=== PATIENT | female | born 1995 | race Caucasian/White ===

== ENCOUNTER 2018-11-12 19:16 | Emergency (ER) | payer BC ==
[2018-11-12] MEDS ORDERED: SODIUM CHLORIDE 0.9% 1,000 ML IV STA (20:38)
[2018-11-12] MEDS ORDERED: KETOROLAC 30 MG/ML 1 ML VIAL IVP STA (20:38)
[2018-11-12] MEDS ORDERED: ONDANSETRON 4 MG/2 ML VIAL IVP STA (20:38)
[2018-11-12 21:04] LABS: Appearance,Urine Clear (Clear); Bilirubin,Urine Negative (Negative); Blood,Urine Negative (Negative); Color,Urine Yellow; Glucose,Urine (UA) Negative (Negative); Ketones,Urine Negative (Negative); Leukocyte Esterase,Urine Negative (Negative); Nitrite,Urine Negative (Negative); PH, Urine 6.5 (5.0-8.0); Protein,Urine Negative (Negative); Specific Gravity,Urine 1.026 (1.001-1.035); Urobilinogen,Urine <2.0 mg/dL (<2.0)
[2018-11-12 21:10] LABS: Basophils % (A) 0 %; Eosinophils # (A) 0.1 k/uL (0-0.7); Eosinophils % (A) 1 %; HCT 38.2 % (34.0-46.0); HGB 12.9 gm/dL (11.4-16.0); Lymphocytes # (A) 0.8 k/uL (1.0-4.8); Lymphocytes % (A) 12 %; MCH 30.3 pg (25.0-35.0); MCHC 33.7 g/dL (31.0-37.0); Monocytes # (A) 0.1 k/uL (0-1.0); Monocytes % (A) 2 %; Neutrophils # (A) 5.8 k/uL (1.3-7.7); Neutrophils % (A) 84 %; Platelet Count 198 k/uL (150-450); RBC 4.25 m/uL (3.80-5.40); RDW 13.1 % (11.5-15.5); WBC 6.9 k/uL (3.8-10.6)
[2018-11-12 21:18] LABS: ALT 18 U/L (9-52); AST 16 U/L (14-36); Albumin 4.1 g/dL (3.5-5.0); Alkaline Phosphatase 53 U/L (38-126); Anion Gap 6 mmol/L; Blood Urea Nitrogen 10 mg/dL (7-17); Calcium 9.2 mg/dL (8.4-10.2); Carbon Dioxide 22 mmol/L (22-30); Chloride 108 mmol/L (98-107); Glucose 91 mg/dL (74-99); Lipase 75 U/L (23-300); Sodium 136 mmol/L (137-145); Total Bilirubin 0.5 mg/dL (0.2-1.3); Total Protein 6.8 g/dL (6.3-8.2)
--- NOTE | 2018-11-12 21:39 | US ---
EXAMINATION TYPE: US transvaginal with Dopplers DATE OF EXAM: 11/12/2018 COMPARISON: NONE CLINICAL HISTORY: 23-year-old female Pain. TECHNIQUE: Transvaginal (TV). Color Doppler and spectral waveform analysis of the ovarian arteries and veins. Date of LMP: 10/17/18 FINDINGS: EXAM MEASUREMENTS: Uterus: 6.2 x 2.6 x 3.8 cm Endometrial Stripe: 0.3 cm Right Ovary: not visualized Left Ovary: 1.8 x 1.6 x 1.2 cm 1. Uterus: Anteverted wnl 2. Endometrium: wnl 3. Right Ovary: extensive peristalsing bowel gas in right adnexa, unable to visualize ovary 4. Left Ovary: wnl Spectral, color and waveform doppler imaging shows good arterial and venous flow within the left ov stevan; there is no evidence for ovarian torsion on left. 5. Bilateral Adnexa: extensive peristalsing bowel gas in right adnexa, prominent vessels on left 6. Posterior cul-de-sac: wnl IMPRESSION: 1. Right ovary cannot be visualized due to extensive peristalsing bowel in the right adnexa. 2. Normal appearance to the left ovary with follicular change. No evidence for ovarian torsion on the left.
--- NOTE | 2018-11-12 22:02 | CT ---
EXAMINATION TYPE: CT abdomen pelvis w con DATE OF EXAM: 11/12/2018 COMPARISON: NONE HISTORY: 23-year-old female with lower abdominal pain. TECHNIQUE: Contiguous axial scanning of the abdomen and pelvis following administration of 100 ml Iso jacobo 300 IV contrast. Delayed images through the kidneys and coronal/sagittal reconstructions perform ed. CT DLP: 589.7 mGycm Automated exposure control for dose reduction was used. FINDINGS: Heart normal size without pericardial effusion. Lung bases clear without pleural effusion. No focal liver lesion or biliary ductal dilatation. Portal venous system is patent. Gallbladder, adrenal glands, kidneys, spleen, pancreas appear within normal limits. No dilated small bowel, free fluid, or free air. The proximal and midportion of the normal-appearing appendix is identified in the right lower quadran t, for example, axial image 60. Scattered prominent mesenteric lymph nodes throughout the abdomen measuring up to 8 mm and measuring up to 1.3 cm in the right lower quadrant, refer to coronal image 30. No dilated small bowel, free fluid, or free air. Some prominent fluid-filled small bowel loops low in the abdomen and within the pelvis. Bladder shows mild circumference of wall thickening. Uterus is visualized. Ovaries not clearly deline ated from adjacent bowel loops. Prominent parauterine varices may reflect normal physiologic change. Trace cul-de-sac free fluid. No pelvic lymphadenopathy seen. Bone no osseous destructive process. IMPRESSION: 1. SOME PROMINENT FLUID FILLED SMALL BOWEL LOOPS SEEN LOW IN THE ABDOMEN AND PELVIS ALONG WITH FADUMO US SCATTERED BORDERLINE SIZED MESENTERIC LYMPH NODES, MILDLY ENLARGED IN THE RIGHT LOWER QUADRANT CINDY SURING UP TO 1.3 CM. FINDINGS COULD REPRESENT ENTERITIS/MESENTERIC ADENITIS. CLINICALLY CORRELATE. 2. ADDITIONAL MILD CIRCUMFERENTIAL BLADDER WALL THICKENING. CORRELATE TO EXCLUDE CYSTITIS.
--- NOTE | 2018-11-12 22:58 | ED ---
Abdominal Pain HPI - General Chief Complaint: Abdominal Pain Stated Complaint: Abd pain Time Seen by Provider: 11/12/18 19:44 Source: patient Limitations: no limitations - History of Present Illness Initial Comments: The patient is a 23 -year-old female who presents to emergency room with complaint of pelvic pain. The patient admits to bilateral pelvic pain which started this afternoon. She describes it as a cramping sensation in the left and right lower quadrants. She did take Motrin for her pain and presented to an urgent care. They did perform a urinalysis which was normal. They also swabbed the patient for influenza. They did recommend that the patient go to the emergency room for further treatment. She does arrive and has a low-grade fever. She does admit to chills. She denies a cough or shortness of breath. She denies any changes in her urination to include dysuria, hematuria or difficulty voiding. She admits to one episode of loose watery stool. No melanotic stools or hematochezia. She denies any recent travel or antibiotic use. She denies any vomiting. Does admit to nausea. No abnormal vaginal bleeding or discharge. Last menstrual cycle was one month ago. She does have a NuvaRing. Denies possibility of sexually transmitted infections. The patient is concerned for appendicitis as her father had similar symptoms and he was younger. There are no other alleviating, precipitating or modifying factors - Related Data Home Medications Medication Instructions Recorded Confirmed Etonogestrel/Ethinyl Estradiol 1 ring VG Q21D 11/12/18 11/12/18 [Nuvaring Vaginal Ring] Fluticasone Nasal Eagle [Flonase 1 spray EA NOSTRIL DAILY PRN 11/12/18 11/12/18 Nasal Eagle] Ibuprofen [Motrin] 800 mg PO TID PRN 11/12/18 11/12/18 Allergies Allergy/AdvReac Type Severity Reaction Status Date / Time No Known Allergies Allergy Verified 11/12/18 20:26 Review of Systems ROS Statement: Those systems with pertinent positive or pertinent negative responses have been documented in the HPI. ROS Other: All systems not noted in ROS Statement are negative. Past Medical History Past Medical History: No Reported History History of Any Multi-Drug Resistant Organisms: None Reported Past Surgical History: No Surgical Hx Reported Past Psychological History: No Psychological Hx Reported Smoking Status: Never smoker Past Alcohol Use History: Rare Past Drug Use History: None Reported General Exam Limitations: no limitations General appearance: alert, in no apparent distress Head exam: Present: atraumatic, normocephalic, normal inspection Eye exam: Present: normal appearance, PERRL, EOMI. Absent: scleral icterus, conjunctival injection, periorbital swelling ENT exam: Present: normal exam, mucous membranes moist Neck exam: Present: normal inspection. Absent: tenderness, meningismus, lymphadenopathy Respiratory exam: Present: normal lung sounds bilaterally. Absent: respiratory distress, wheezes, rales, rhonchi, stridor Cardiovascular Exam: Present: regular rate, normal rhythm, normal heart sounds. Absent: systolic murmur, diastolic murmur, rubs, gallop, clicks GI/Abdominal exam: Present: soft, tenderness, normal bowel sounds, other (The patient has mild tenderness in her left and right lower quadrants. No rebound guarding or rigidity. No pain at McBurney's point. Negative Guerrero sign.). Absent: distended, guarding, rebound, rigid Extremities exam: Present: normal inspection, full ROM, normal capillary refill. Absent: tenderness, pedal edema, joint swelling, calf tenderness Back exam: Present: normal inspection Neurological exam: Present: alert, oriented X3, CN II-XII intact Psychiatric exam: Present: normal affect, normal mood Skin exam: Present: warm, dry, intact, normal color. Absent: rash Course Vital Signs 11/12/18 11/12/18 19:22 23:07 Temperature 100.1 F H 99.0 F Pulse Rate 107 H 70 Respiratory 20 18 Rate Blood Pressure 129/76 94/54 O2 Sat by Pulse 99 98 Oximetry Medical Decision Making - Medical Decision Making The patient was placed into room 9. I did discuss the diagnosis, differential and treatment options. IV access was established. The patient was given a 1 L bolus of 0.9% normal saline. She was also given 15 mg of Toradol IV and 4 mg of Zofran. Laboratory studies were conducted the patient provided a urine sample. She was sent for a pelvic ultrasound as well as a CT of her abdomen and pelvis. Upon return results I did discuss them with the patient. I did inform her of the fluid-filled loops of small bowel seen on CT. The proximal appendix is visualized on CT and is normal. I also informed her that we cannot visualize her right ovary on US. The patient was reevaluated and states that her pain is greatly improved. She is re-vitaled. She is currently afebrile and her heart rate has improved. She feels comfortable for discharge at this time. Her abdomen remained without any peritoneal signs. I did inform her that she needs to follow-up with her primary care physician in 2 days. If she has any new or worsening symptoms, she must return to the emergency department. I educated her regarding the warning signs of appendicitis or an ovarian torsion and instructed her that she absolutely must return to the emergency room is she develops any of those. I informed her that I did not want to give her any pain medications for home as I did not want to mask any concerning symptoms. The patient understood this. She was then discharged home in stable condition. - Lab Data Result diagrams: 11/12/18 20:50 11/12/18 20:50 Lab Results 11/12/18 11/12/18 11/12/18 Range/Units 20:50 20:50 20:50 WBC 6.9 (3.8-10.6) k/uL RBC 4.25 (3.80-5.40) m/uL Hgb 12.9 (11.4-16.0) gm/dL Hct 38.2 (34.0-46.0) % MCV 90.0 (80.0-100.0) fL MCH 30.3 (25.0-35.0) pg MCHC 33.7 (31.0-37.0) g/dL RDW 13.1 (11.5-15.5) % Plt Count 198 (150-450) k/uL Neutrophils % 84 % Lymphocytes % 12 % Monocytes % 2 % Eosinophils % 1 % Basophils % 0 % Neutrophils # 5.8 (1.3-7.7) k/uL Lymphocytes # 0.8 L (1.0-4.8) k/uL Monocytes # 0.1 (0-1.0) k/uL Eosinophils # 0.1 (0-0.7) k/uL Basophils # 0.0 (0-0.2) k/uL Sodium 136 L (137-145) mmol/L Potassium 4.0 (3.5-5.1) mmol/L Chloride 108 H (98-107) mmol/L Carbon Dioxide 22 (22-30) mmol/L Anion Gap 6 mmol/L BUN 10 (7-17) mg/dL Creatinine 0.50 L (0.52-1.04) mg/dL Est GFR (CKD-EPI)AfAm >90 (>60 ml/min/1.73 sqM) Est GFR (CKD-EPI)NonAf >90 (>60 ml/min/1.73 sqM) Glucose 91 (74-99) mg/dL Plasma Lactic Acid Kieran (0.7-2.0) mmol/L Calcium 9.2 (8.4-10.2) mg/dL Total Bilirubin 0.5 (0.2-1.3) mg/dL AST 16 (14-36) U/L ALT 18 (9-52) U/L Alkaline Phosphatase 53 (38-126) U/L Total Protein 6.8 (6.3-8.2) g/dL Albumin 4.1 (3.5-5.0) g/dL Lipase 75 (23-300) U/L Urine Color Yellow Urine Appearance Clear (Clear) Urine pH 6.5 (5.0-8.0) Ur Specific Crawford 1.026 (1.001-1.035) Urine Protein Negative (Negative) Urine Glucose (UA) Negative (Negative) Urine Ketones Negative (Negative) Urine Blood Negative (Negative) Urine Nitrite Negative (Negative) Urine Bilirubin Negative (Negative) Urine Urobilinogen <2.0 (<2.0) mg/dL Ur Leukocyte Esterase Negative (Negative) Urine HCG, Qual (Not Detectd) 11/12/18 11/12/18 Range/Units 20:50 20:50 WBC (3.8-10.6) k/uL RBC (3.80-5.40) m/uL Hgb (11.4-16.0) gm/dL Hct (34.0-46.0) % MCV (80.0-100.0) fL MCH (25.0-35.0) pg MCHC (31.0-37.0) g/dL RDW (11.5-15.5) % Plt Count (150-450) k/uL Neutrophils % % Lymphocytes % % Monocytes % % Eosinophils % % Basophils % % Neutrophils # (1.3-7.7) k/uL Lymphocytes # (1.0-4.8) k/uL Monocytes # (0-1.0) k/uL Eosinophils # (0-0.7) k/uL Basophils # (0-0.2) k/uL Sodium (137-145) mmol/L Potassium (3.5-5.1) mmol/L Chloride (98-107) mmol/L Carbon Dioxide (22-30) mmol/L Anion Gap mmol/L BUN (7-17) mg/dL Creatinine (0.52-1.04) mg/dL Est GFR (CKD-EPI)AfAm (>60 ml/min/1.73 sqM) Est GFR (CKD-EPI)NonAf (>60 ml/min/1.73 sqM) Glucose (74-99) mg/dL Plasma Lactic Acid Kieran 0.8 (0.7-2.0) mmol/L Calcium (8.4-10.2) mg/dL Total Bilirubin (0.2-1.3) mg/dL AST (14-36) U/L ALT (9-52) U/L Alkaline Phosphatase (38-126) U/L Total Protein (6.3-8.2) g/dL Albumin (3.5-5.0) g/dL Lipase (23-300) U/L Urine Color Urine Appearance (Clear) Urine pH (5.0-8.0) Ur Specific Crawford (1.001-1.035) Urine Protein (Negative) Urine Glucose (UA) (Negative) Urine Ketones (Negative) Urine Blood (Negative) Urine Nitrite (Negative) Urine Bilirubin (Negative) Urine Urobilinogen (<2.0) mg/dL Ur Leukocyte Esterase (Negative) Urine HCG, Qual Not Detected (Not Detectd) - Radiology Data Radiology results: report reviewed Disposition Clinical Impression: Abdominal pain Disposition: HOME SELF-CARE Condition: Stable Instructions (If sedation given, give patient instructions): Abdominal Pain (ED) Additional Instructions: Please follow-up with your primary care physician within 2 days. If your pain returns or you develop vomiting or fevers, return to the emergency department. Please also return if you have any new symptoms Is patient prescribed a controlled substance at d/c from ED?: No Referrals: Izabela Walker MD [Primary Care Provider] - 1-2 days Time of Disposition: 22:57
[2018-11-12 23:08] VITALS: BP 94/54; PULSE 70; RESP 18; TEMP 99
== END 2018-11-12 23:00 | disposition home or self-care (01) ==
LOC: EC 19:16
DX: R10.31 Right lower quadrant pain (principal); R10.32 Left lower quadrant pain; R19.5 Other fecal abnormalities; Z79.3 Long term (current) use of hormonal contraceptives
CPT/HCPCS: 36415; 80053; 83605; 83690; 85025; 81003; 81025; 93976; 76830; 74177; 99284; 96374; 96375; 96361; J2405; J1885; Q9967